=== PATIENT | female | born 1935 | race Two or more races ===

== ENCOUNTER 2017-07-26 22:18 | Inpatient (IN) | payer MEDICARE, MEDICAID ==
[~2017-07-26] VITALS: Ht 154.9 cm; Wt 64.0 kg
--- NOTE | 2017-07-26 22:21 | NUR ---
PT BIB RA 60 WITH A C/O HYPOGLYCEMIA IN THE FIELD. PT APPEARS ALTERED. NOT RESPONDING TO VERBAL. PT TAKEN TO ROOM #7 AND PLACED ON THE BED. PT CONNECTED TO THE MONITOR AND CONTINUOUS PULSE OX.
--- NOTE | 2017-07-26 22:21 | NUR ---
PER TRIAGE, LAST KNOWN WELL 10 MINS STOCK CONTROL SUPERVISOR.
--- NOTE | 2017-07-26 22:28 | NUR ---
DR. REDDY IS AT THE BEDSIDE EVALUATING THE PT.
[2017-07-26] MEDS ORDERED: DEXTROSE 50%-WATER 50 ML DISP.SYRIN ONE ×2 (22:30→23:41)
--- NOTE | 2017-07-26 22:30 | NUR ---
ACCUCHECK DONE. BLOOD SUGAR IS 23.
--- NOTE | 2017-07-26 22:30 | NUR ---
CALLED [facility]'S TELESTROKE HOTLINE, SPOKE WITH ELSY, PRESENTED PT, AWAITING CALL BACK FROM (NEUROLOGIST).
--- NOTE | 2017-07-26 22:32 | NUR ---
PT REC'D AN AMP OF DEXTROSE VIA 20G IV R HAND.
--- NOTE | 2017-07-26 22:33 | NUR ---
PT LEFT FOR CT.
--- NOTE | 2017-07-26 22:47 | NUR ---
DR. REDDY SPOKE TO THE NEUROLOGIST AND ASKED US TO CALL IF WE NEED HIM. PT'S NIHSS AT THIS TIME IS 0.
--- NOTE | 2017-07-26 22:50 | NUR ---
PT IS EATING A TUNA SANDWICH AND DRINKING OJ. PT IS TOLERATING PO WELL.
[2017-07-26 23:12] LABS: BASOPHILS % (AUTO) 0.2 % (0.0-2.0); EOSINOPHILS # (AUTO) 0.1 /CMM (0.0-0.7); EOSINOPHILS % (AUTO) 1.1 % (0.0-6.0); HEMATOCRIT 36 % (33-45); LYMPHOCYTES % (AUTO) 28.6 % (20.0-44.0); MEAN CORPUSCULAR HEMOGLOBIN 29 PG (26.0-33.0); MEAN CORPUSCULAR HGB CONC 33 g/dl (31.0-36.0); MEAN CORPUSCULAR VOLUME 89 fL (82-100); MONOCYTES # (AUTO) 0.4 /CMM (0.1-1.30); MONOCYTES % (AUTO) 6.1 % (2.0-12.0); NEUTROPHILS # (AUTO) 4.5 /CMM (1.8-8.9); PLATELET COUNT (AUTO) 186 /CMM (150-450); RDW COEFFICIENT OF VARIATION 16.7 (11.5-15.0)
[2017-07-26 23:26] LABS: CALCIUM, SERUM 8.3 mg/dL (8.5-10.1); CARBON DIOXIDE 32 mmol/L (21-32); CHLORIDE 101 mmol/L (98-107); CREATININE 3.2 mg/dL (0.6-1.3); GLUCOSE 88 mg/dL (74-106); POTASSIUM 4.2 mmol/L (3.5-5.1); SODIUM SERUM 137 mmol/L (136-145); UREA NITROGEN, BLOOD 16 mg/dL (7-18)
[2017-07-26 23:27] LABS: INR 1.07 (0.87-1.13)
[2017-07-26 23:33] LABS: ALANINE AMINOTRANSFERASE 13 U/L (12-78); ALBUMIN 3.4 g/dL (3.4-5.0); ALKALINE PHOSPHATASE 186 U/L (46-116); ASPARTATE AMINOTRANSFERASE 17 U/L (15-37); BILIRUBIN,DIRECT 0.2 mg/dL (0.0-0.2); BILIRUBIN,TOTAL 0.5 mg/dL (0.2-1.0); TOTAL PROTEIN, SERUM 7.8 g/dL (6.4-8.2); TROPONIN I < 0.017 ng/mL (0.00-0.056)
--- NOTE | 2017-07-26 23:58 | NUR ---
IN AND OUT CATH DONE. APPROX 3ML URINE OUTPUT NOTED AND SENT TO LAB.
[2017-07-27] MEDS ORDERED: AZITHROMYCIN 500 MG in IV D5W 250 ML IV ONE ×2
[2017-07-27] MEDS ORDERED: CEFTRIAXONE 1 G VIAL ONE
[2017-07-27] MEDS ORDERED: AZITHROMYCIN 500 MG VIAL ONE
[2017-07-27] MEDS ORDERED: CEFTRIAXONE 1GM BAG (ER ONLY) 50 ML IV ONE
--- NOTE | 2017-07-27 00:18 | NUR ---
PT IS GOING TO [facility]
[2017-07-27 00:20] LABS: APPEARANCE,URINE SL CLOUDY (CLEAR); BILIRUBIN,URINE 1+ (NEGATIVE); BLOOD, URINE 2+ Ery/uL (NEGATIVE); COLOR,URINE YELLOW (YELLOW); KETONES,URINE 1+ (NEGATIVE); LEUKOCYTE ESTERASE ,URINE NEGATIVE (NEGATIVE); NITRITE, URINE NEGATIVE (NEGATIVE); PROTEIN,URINE 1+ mg/dl (NEGATIVE); UGLUCOSE NEGATIVE (NEGATIVE); UROBILINOGEN,URINE 0.2 EU/dL (0.2)
[2017-07-27 00:29] LABS: BACTERIA,URINE None seen /HPF (None Seen)
[2017-07-27 00:30] LABS: SQUAMOUS EPITHELIAL CELL,UR Few /HPF (None Seen)
--- NOTE | 2017-07-27 00:47 | NUR ---
REPORT GIVEN TO JANE MOORE
[2017-07-27 01:00] VITALS: BP 129/46
--- NOTE | 2017-07-27 01:15 | NUR ---
[facility]/RN NOTES: ADMITTED AN 82 YRS FEMALE FROM ER VIA [facility] W/ NURSE ARCENIO AND DAUGHTER AT BEDSIDE. TRANSFERRED PT. TO ROOM 107. A/O X 3. CITIZEN OF [place] SPEAKING ONLY. W/ O2 @ 3LPM VIA N/C SAT.99%. NO FACIAL GRIMACE OR MOANING NOTED. PT. DENIES ANY C/O CHEST PAIN OR SOB VIA DAUGHTERS HELP IN TRANSLATING IN CITIZEN OF [place]. HAS LUE FISTULA. HAD HD YESTERDAY. HAS 20 G ON RH PATENT AND INTACT W/ NO S/S OF INFECTION/INFILTRATION NOTED. ON TELE MONITOR W/ SINUS RAKESH IN 50-56'S. DAUGHTER BROUGHT IN HOME MEDS. INFORMED DR. CLINE. HAS TRACE EDEMA TO BLE'S. CALL LIGHT W/ REACH. ALL NEEDS MEET AND ATTENED. WILL CONTINUE TO MONITOR.
[2017-07-27] MEDS ORDERED: MAG HYDROX/AL HYDROX/SIMETH 30 ML UDC PO PRN (01:30)
[2017-07-27] MEDS ORDERED: ACETAMINOPHEN 325 MG TABLET PO PRN (01:30)
[2017-07-27] MEDS ORDERED: IV NS 0.9% 1,000 ML BAG IV ONE (01:30)
[2017-07-27] MEDS ORDERED: ONDANSETRON HCL/PF 4 MG/2 ML VIAL IVP PRN (01:30)
[2017-07-27] MEDS ORDERED: MAGNESIUM HYDROXIDE 30 ML UDC PO PRN (01:30)
[2017-07-27] MEDS ORDERED: IV D5/0.45 NACL 1,000 ML IV PRN (01:30)
[2017-07-27] MEDS ORDERED: ZOLPIDEM TARTRATE 5 MG TABLET PO PRN (01:30)
[2017-07-27] MEDS ORDERED: VANCOMYCIN 1 GM in IV D5W 250 ML IV ONE (01:30)
[2017-07-27] MEDS ORDERED: HYDROCODONE/APAP 5/325MG 1 EACH TABLET PO PRN (01:30)
[2017-07-27] MEDS ORDERED: Z GUARD REMEDY 2 OZ OINT TP PRN (01:30)
[2017-07-27] MEDS ORDERED: VANCOMYCIN 1 GM VIAL ONE (02:08)
[2017-07-27 04:00] VITALS: BP 141/47
[2017-07-27] MEDS ORDERED: PIPERACILLIN /TAZOBACTAM 3.375 G VIAL IV ONE (04:17)
[2017-07-27] MEDS ORDERED: DEXTROSE 50%-WATER 50 ML DISP.SYRIN ONE (05:38)
[2017-07-27] MEDS ORDERED: PIPERACILLIN /TAZOBACTAM 3.375 G in IV D5W 50 ML IV SCH (06:00)
[2017-07-27] MEDS ORDERED: DEXTROSE 50%-WATER 50 ML DISP.SYRIN IVP PRN (06:00)
[2017-07-27] MEDS ORDERED: DEXTROSE 50%-WATER 50 ML DISP.SYRIN IVP ONE ×3 (06:00)
--- NOTE | 2017-07-27 07:29 | NUR ---
[facility]/RN NOTES: BS AT 6:15 AM 141. I/O 15 ML URINE. ENDORSED AM NURSE TO CLARIFY OMEPRAZOLE 20 MG, ULORIC (FEBUXOSTAT) 40 MGS DAILY AND ORDERS FOR BS CHECK. REPORT GIVEN TO NEXT SHIFT NURSE FOR GARRETT.
[2017-07-27] MEDS ORDERED: FEE PK DOSING 1 MIN EA MC ONE (07:52)
[2017-07-27] MEDS ORDERED: METO25TA20 PO (07:53)
[2017-07-27] MEDS ORDERED: ATOR10TA PO (07:53)
[2017-07-27] MEDS ORDERED: APIX2.5T PO (07:53)
[2017-07-27] MEDS ORDERED: GLIP2.5T3 PO (07:53)
[2017-07-27] MEDS ORDERED: OMEP20CA10 PO (07:53)
[2017-07-27] MEDS ORDERED: AMLO10TA2 PO (07:53)
[2017-07-27] MEDS ORDERED: LEVO50TA8 PO (07:53)
[2017-07-27] MEDS ORDERED: FEBU40TA PO (07:53)
[2017-07-27] MEDS ORDERED: VALS80TA2 PO (07:53)
[2017-07-27] MEDS ORDERED: MORPHINE SULFATE INJ 4 MG/ML DISP.SYRIN IV PRN (08:00)
[2017-07-27] MEDS ORDERED: VANCOMYCIN 500 MG in IV D5W 100 ML IV PRN (08:00)
--- NOTE | 2017-07-27 08:00 | NUR ---
[facility] RN NOTE PATIENT IN BED ALERT AND ORIENTED X4 ON OXYGEN 3L, NO SOB NOTED, ON TELE MONITOR SB-SR 58, PATIENT ON D5 1/2 NS AT 75 ML/HR , PLAN OF CARE DISCUSSED WITH PATIENT, BED IN LOWEST AND LOCKED POSITION WILL MONITOR CLOSELY CALL LIGHT WITH IN REACH.
--- NOTE | 2017-07-27 08:40 | NUR ---
[facility] LARA NOTE PATIENT BLLOD SUGAR CHECK 27MG/DL D50% GIVEN ORDER, WILL MONITOR CLOSELY Addendum: 07/27/17 at 0919 by VANNA ESPINAL RN GLUCOTROL NOT GIVEN BLOOD SUGAR 88MG\DL
[2017-07-27] MEDS: AMLODIPINE BESYLATE 10 MG TABLET PO SCH (08:55)
[2017-07-27] MEDS: VALSARTAN 80 MG TABLET PO SCH ×2 (08:55→21:31)
[2017-07-27] MEDS: APIXABAN 2.5 MG TABLET PO SCH ×2 (08:57→16:25)
[2017-07-27] MEDS: LEVOTHYROXINE SODIUM 50 MCG TABLET PO SCH ×2 (08:58→09:00)
[2017-07-27] MEDS: METOPROLOL SUCCINATE 25 MG TAB.SR.24H PO SCH (08:58)
[2017-07-27] MEDS: glipiZIDE 5 MG TABLET PO SCH (08:58)
[2017-07-27] MEDS: LORAZEPAM 0.5 MG TABLET PO SCH ×2 (08:59→16:25)
[2017-07-27 10:40] VITALS: BP 153/43
--- NOTE | 2017-07-27 10:43 | NUR ---
[facility] RN OTE PT AT BEDSIDE
[2017-07-27 12:00] VITALS: BP 126/40
[2017-07-27] MEDS: PIPERACILLIN /TAZOBACTAM 2.25 G in IV D5W 50 ML IV SCH ×2 (12:23→21:30)
--- NOTE | 2017-07-27 12:47 | NUR ---
[facility] RN NOTE SPOKE WITH DR KING AWARE THAT EALIER BLOOD SUGAR 27 MG\DL WITH NEW ORDER GIVEN ACCU CHECK AND D5W AT 40 ML PER HOUR
[2017-07-27] MEDS ORDERED: IV D5W 1,000 ML IV PRN (13:00)
[2017-07-27] MEDS ORDERED: DEXTROSE 50%-WATER 50 ML DISP.SYRIN IV PRN (13:00)
[2017-07-27 16:00] VITALS: BP 102/42
[2017-07-27] MEDS ORDERED: APIXABAN 2.5 MG TABLET PO SCH (17:00)
[2017-07-27] MEDS: BLOOD SUGAR DIAGNOSTIC 1 EACH STRIP IN SCH ×2 (17:33→21:33)
--- NOTE | 2017-07-27 17:33 | NUR ---
[facility] RN NOTE BLOOD SUGAR 26 MG\DL , D 50% GIVEN IV ORDERED DR KING NOTIFIED , STATED ENCOURAGE TO EAT BETTER
--- NOTE | 2017-07-27 18:19 | NUR ---
[facility] RNNNOTE BLOOD SUGAR 90 MG\DL HAVING DINER , FAMILY AT BEDSIDE , ALL NEEDS ATTENDED WILL CONT TO MONITOR CLOSELY
--- NOTE | 2017-07-27 19:30 | NUR ---
[facility] RN INITIAL NOTES RECEIVED PATIENT AWAKE, A/OX3, OCCITAN SPEAKING. DENIES PAIN OR DISCOMFORT. DENIES SOB. SKIN WARM AND DRY TO TOUCH. ON TELE MONITOR SB 58. IVF RUNNING. HOB ELEVATED. SIDE RAILS UP AND LOCKED. BED KEPT AT LOWEST POSITION. CALL LIGHT KEPT WITHIN EASY REACH. WILL CONTINUE TO MONITOR.
[2017-07-27 20:00] VITALS: BP 144/34
[2017-07-27] MEDS ORDERED: ATORVASTATIN 10 MG TABLET PO SCH (22:00)
[2017-07-28] VITALS (7 sets, daily range): BP systolic 140–161; BP diastolic 41–49
[2017-07-28] MEDS: PIPERACILLIN /TAZOBACTAM 2.25 G in IV D5W 50 ML IV SCH ×3 (05:40→21:45)
--- NOTE | 2017-07-28 06:49 | NUR ---
[facility] RN CLOSING NOTES NO SIGNIFICANT CHANGES OVERNIGHT. ALL DUE MEDS GIVEN. NO RESPIRATORY DISTRESS NOTED, ON 3LPMO2 VIA NC. ALL NEEDS ANTICIPATED AND MET. HOB KEPT ELEVATED. SIDE RAILS UP AND LOCKED. KEPT CLEAN AND DRY. CALL LIGHT KEPT WITHIN EASY REACH. WILL ENDORSE CONTINUITY OF CARE TO AM NURSE.
[2017-07-28] MEDS: BLOOD SUGAR DIAGNOSTIC 1 EACH STRIP IN SCH ×4 (07:57→21:47)
[2017-07-28] MEDS: LEVOTHYROXINE SODIUM 50 MCG TABLET PO SCH (07:58)
[2017-07-28] MEDS: ATORVASTATIN 10 MG TABLET PO SCH (08:00)
[2017-07-28] MEDS: APIXABAN 2.5 MG TABLET PO SCH ×2 (08:00→16:33)
[2017-07-28] MEDS: glipiZIDE 5 MG TABLET PO SCH (08:00)
[2017-07-28] MEDS: LORAZEPAM 0.5 MG TABLET PO SCH ×2 (08:00→16:28)
[2017-07-28] MEDS ORDERED: AMLODIPINE BESYLATE 10 MG TABLET PO SCH (09:00)
[2017-07-28] MEDS: AMLODIPINE BESYLATE 10 MG TABLET PO SCH (09:00)
[2017-07-28] MEDS: VALSARTAN 80 MG TABLET PO SCH ×2 (09:00→21:44)
[2017-07-28] MEDS: METOPROLOL SUCCINATE 25 MG TAB.SR.24H PO SCH (09:00)
--- NOTE | 2017-07-28 09:23 | NUR ---
RN INITIAL NOTE PT STABLE NO C/O PAIN. ALL SAFETY MEASURES IN PLACE. SPOKE TO MATTIE HD NURSE ASKED TO HOLD B/P MEDICATIONS . PATIENT WILL HAVE HD THIS MORNING.
--- NOTE | 2017-07-28 09:26 | NUR ---
RN NOTE REMOVED PINKY STICKY NOTE FOR PATIENT SAFETY.
[2017-07-28 11:18] LABS: *C PEPTIDE 11.8 ng/mL (1.1-4.4); *INSULIN 24.2 uIU/mL (2.6-24.9)
[2017-07-28] MEDS: INSULIN REGULAR, HUMAN 100 UNIT/ML 3 ML VIAL SQ PRN (11:35)
[2017-07-28] MEDS: ALBUTEROL FS 2.5 MG/3 ML VIAL.NEB NEB SCH ×2 (14:20→19:30)
[2017-07-28] MEDS: LACTOBACILLUS RHAMNOSUS GG 1 EACH CAP.SPRINK PO SCH (16:28)
[2017-07-28 17:10] LABS: BASOPHILS % (AUTO) 0.4 % (0.0-2.0); EOSINOPHILS # (AUTO) 0.2 /CMM (0.0-0.7); EOSINOPHILS % (AUTO) 2.7 % (0.0-6.0); HEMATOCRIT 34 % (33-45); HEMOGLOBIN 11.4 g/dL (11.5-14.8); LYMPHOCYTES # (AUTO) 1.8 /CMM (0.8-4.8); LYMPHOCYTES % (AUTO) 24.1 % (20.0-44.0); MEAN CORPUSCULAR HEMOGLOBIN 29 PG (26.0-33.0); MEAN CORPUSCULAR HGB CONC 34 g/dl (31.0-36.0); MEAN CORPUSCULAR VOLUME 87 fL (82-100); MONOCYTES # (AUTO) 0.5 /CMM (0.1-1.30); MONOCYTES % (AUTO) 7.1 % (2.0-12.0); NEUTROPHILS # (AUTO) 4.9 /CMM (1.8-8.9); NEUTROPHILS % (AUTO) 65.7 % (43.0-81.0); PLATELET COUNT (AUTO) 175 /CMM (150-450); RDW COEFFICIENT OF VARIATION 16.9 (11.5-15.0); RED BLOOD CELL COUNT(AUTO) 3.92 MIL/uL (4.0-5.2); RETICULOCYTE COUNT 1.2 % (0.6-2.5); WHITE BLOOD COUNT (AUTO) 7.4 K/uL (4.3-11.0)
[2017-07-28 17:31] LABS: ALANINE AMINOTRANSFERASE 11 U/L (12-78); ALBUMIN 2.8 g/dL (3.4-5.0); ALKALINE PHOSPHATASE 165 U/L (46-116); AMYLASE 43 U/L (25-115); ASPARTATE AMINOTRANSFERASE 19 U/L (15-37); BILIRUBIN,TOTAL 0.6 mg/dL (0.2-1.0); CALCIUM, SERUM 8.2 mg/dL (8.5-10.1); CARBON DIOXIDE 27 mmol/L (21-32); CHLORIDE 91 mmol/L (98-107); CREATININE 4.2 mg/dL (0.6-1.3); GLUCOSE 81 mg/dL (74-106); INR 1.13 (0.87-1.13); LIPASE 62 U/L (73-393); MAGNESIUM 1.7 mg/dL (1.8-2.4); PHOSPHORUS 3.9 mg/dL (2.5-4.9); POTASSIUM 4.9 mmol/L (3.5-5.1); SODIUM SERUM 127 mmol/L (136-145); TOTAL PROTEIN, SERUM 7.1 g/dL (6.4-8.2); UREA NITROGEN, BLOOD 23 mg/dL (7-18)
[2017-07-28 18:34] LABS: IRON, SERUM 48 ug/dl (50-175); TOTAL IRON BINDING CAPACITY 213 ug/dl (250-450)
--- NOTE | 2017-07-28 19:30 | NUR ---
POTATO CHIP FRIER INITIAL NOTES RECEIVED PATIENT AWAKE A/OX1, APPEARS TO BE MORE CONFUSED TODAY. FAMILY AT BEDSIDE. DIALYSIS NURSE AT BEDSIDE WITH HD ONGOING. SKIN WARM AND DRY TO TOUCH. DENIES PAIN OR DISCOMFORT. NO RESPIRATORY DISTRESS NOTED. NOTED WITH DRY COUGH, ON 3LPMO2 VIA NC. HOB ELEVATED. SIDE RAILS UP AND LOCKED. BED KEPT AT LOWEST POSITION. CALL LIGHT KEPT WITHIN EASY REACH. WILL CONTINUE TO MONITOR.
--- NOTE | 2017-07-28 19:53 | NUR ---
PATIENT COMPLETED DIALYSIS WITH NO COMPLICATIONS WITH 1L TAKEN OUT.
[2017-07-28 22:37] LABS: CHOLESTEROL 107 mg/dL (<200); HDL CHOLESTEROL 57 mg/dL (40-60); LDL 38 mg/dL (0-99); TRIGLYCERIDES 70 mg/dL (30-150)
--- NOTE | 2017-07-28 23:45 | NUR ---
telecom specialist notes noted patient with non-productive cough. informed dr. kevin with new orders for robitussin 5ml. noted and carried out. will continue to monitor.
[2017-07-28] MEDS: GUAIFENESIN/D-METHORPHAN HB 5 ML UDC PO PRN (23:46)
[2017-07-29] VITALS: BP 138/53
[2017-07-29] MEDS: ALBUTEROL FS 2.5 MG/3 ML VIAL.NEB NEB SCH ×4 (01:44→19:44)
[2017-07-29 04:00] VITALS: BP 128/35
[2017-07-29] MEDS: PIPERACILLIN /TAZOBACTAM 2.25 G in IV D5W 50 ML IV SCH ×3 (05:26→23:07)
[2017-07-29 06:55] LABS: BASOPHILS % (AUTO) 0.5 % (0.0-2.0); EOSINOPHILS # (AUTO) 0.2 /CMM (0.0-0.7); EOSINOPHILS % (AUTO) 3.5 % (0.0-6.0); HEMATOCRIT 30 % (33-45); HEMOGLOBIN 10.3 g/dL (11.5-14.8); LYMPHOCYTES # (AUTO) 1.2 /CMM (0.8-4.8); LYMPHOCYTES % (AUTO) 22.1 % (20.0-44.0); MEAN CORPUSCULAR HEMOGLOBIN 30 PG (26.0-33.0); MEAN CORPUSCULAR HGB CONC 34 g/dl (31.0-36.0); MEAN CORPUSCULAR VOLUME 88 fL (82-100); MONOCYTES # (AUTO) 0.4 /CMM (0.1-1.30); MONOCYTES % (AUTO) 7.7 % (2.0-12.0); NEUTROPHILS # (AUTO) 3.6 /CMM (1.8-8.9); NEUTROPHILS % (AUTO) 66.2 % (43.0-81.0); PLATELET COUNT (AUTO) 134 /CMM (150-450); RDW COEFFICIENT OF VARIATION 16.8 (11.5-15.0); RED BLOOD CELL COUNT(AUTO) 3.46 MIL/uL (4.0-5.2); WHITE BLOOD COUNT (AUTO) 5.5 K/uL (4.3-11.0)
[2017-07-29 07:11] LABS: CARBON DIOXIDE 30 mmol/L (21-32); CHLORIDE 97 mmol/L (98-107); CREATININE 3.3 mg/dL (0.6-1.3); GLUCOSE 102 mg/dL (74-106); MAGNESIUM 1.9 mg/dL (1.8-2.4); PHOSPHORUS 4.2 mg/dL (2.5-4.9); POTASSIUM 4.5 mmol/L (3.5-5.1); SODIUM SERUM 132 mmol/L (136-145); UREA NITROGEN, BLOOD 17 mg/dL (7-18)
--- NOTE | 2017-07-29 07:25 | NUR ---
COIN MACHINE SERVICER REPAIRER CLOSING NOTES NO SIGNIFICANT CHANGES OVERNIGHT. NO RESPIRATORY DISTRESS NOTED. SLEPT WELL THROUGH THEN NIGHT. ALL NEEDS ANTICIPATED AND MET. SIDE RAILS UP AND LOCKED. BED KEPT AT LOWEST POSITION. CALL LIGHT KEPT WITHIN EASY REACH. WILL ENDORSE CONTINUITY OF CARE TO AM NURSE.
--- NOTE | 2017-07-29 07:30 | NUR ---
DOCK GRADER AM NOTES RECEIVED PATIENT AWAKE A/OX1, KITTITIAN SPEAKING, PERIODS OF CONFUSION. ON 3L O2 NC, NO SOB, O2 SAT 94%. DENIES PAIN AT THIS TIME, GATO AV FISTUAL THRILL AND BRUIT PRESENT. JANETH MIDLINE FLUSHES WELL, SITE CLEAR.SEE NURSING FLOWSHEET FOR SKIN ISSUES. SOFT DIET. BRP WITH ASSIST. SKIN WARM AND DRY TO TOUCH. NOTED WITH DRY COUGH, ON 3LPMO2 VIA NC. HOB ELEVATED. SIDE RAILS UP AND LOCKED. BED KEPT AT LOWEST POSITION. CALL LIGHT KEPT WITHIN EASY REACH. WILL CONTINUE TO MONITOR. Addendum: 07/29/17 at 1047 by LILLIAN DODSON RN ADDENDUM TELEMETRY READS SR HR 98.
[2017-07-29 08:00] VITALS: BP 115/42
[2017-07-29] MEDS: BLOOD SUGAR DIAGNOSTIC 1 EACH STRIP IN SCH ×4 (08:07→21:34)
[2017-07-29] MEDS: LEVOTHYROXINE SODIUM 50 MCG TABLET PO SCH (08:14)
--- NOTE | 2017-07-29 08:17 | NUR ---
POWER SEWING MACHINE OPERATOR NOTES ACCUCHECK. BS 99 MG/DL. NO INSULIN COVERAGE GIVEN.
[2017-07-29] MEDS: LACTOBACILLUS RHAMNOSUS GG 1 EACH CAP.SPRINK PO SCH ×2 (08:22→16:30)
[2017-07-29] MEDS: LORAZEPAM 0.5 MG TABLET PO SCH ×2 (08:22→16:30)
[2017-07-29] MEDS: METOPROLOL SUCCINATE 25 MG TAB.SR.24H PO SCH (08:23)
[2017-07-29] MEDS: AMLODIPINE BESYLATE 10 MG TABLET PO SCH (08:23)
[2017-07-29] MEDS: VALSARTAN 80 MG TABLET PO SCH ×2 (08:23→21:26)
[2017-07-29] MEDS: ATORVASTATIN 10 MG TABLET PO SCH (08:25)
[2017-07-29] MEDS: APIXABAN 2.5 MG TABLET PO SCH ×2 (09:11→16:30)
--- NOTE | 2017-07-29 09:30 | NUR ---
PARENT PARTNER NOTES DUE MEDS GIVEN
[2017-07-29] MEDS: GUAIFENESIN/D-METHORPHAN HB 5 ML UDC PO PRN (11:44)
--- NOTE | 2017-07-29 11:52 | NUR ---
FILTRATION SUPERVISOR NOTES ACCUCHECK. BS 103 MG/DL. NO INSULIN COVERAGE GIVEN.
[2017-07-29 16:00] VITALS: BP 140/56
--- NOTE | 2017-07-29 16:34 | NUR ---
SAW OPERATOR NOTES ACCUCHECK. BS 143 MG/DL. PATIENT REFUSED INSULIN AT THIS TIME DUE TO PREVIOUS LOW BS.
--- NOTE | 2017-07-29 18:37 | NUR ---
MS RN CLOSING NOTES PATIENT RESTING COMFORTABLY, A/OX1, OCCITAN SPEAKING, PERIODS OF CONFUSION. ON 3L O2 NC, NO SOB, DENIES PAIN AT THIS TIME, GATO AV FISTULA THRILL AND BRUIT PRESENT. JANETH MIDLINE FLUSHES WELL, SITE CLEAR.SOFT DIET. BRP WITH ASSIST. SKIN WARM AND DRY TO TOUCH. NOTED WITH DRY COUGH, HOB ELEVATED. SIDE RAILS UP AND LOCKED. BED KEPT AT LOWEST POSITION. CALL LIGHT KEPT WITHIN EASY REACH. ALL NEEDS MET. NO OTHER SIGNIFICANT CHANGE IN CONDITION. WILL ENDORSE TO NEXT SHIFT FOR GARRETT.
[2017-07-29 20:00] VITALS: BP 144/42
[2017-07-30] MEDS: ALBUTEROL FS 2.5 MG/3 ML VIAL.NEB NEB SCH ×4 (01:29→20:50)
--- NOTE | 2017-07-30 03:16 | NUR ---
RN NOTES ALERT AND ORIENTED. VERBALLY ABLE TO COMMUNICATE NEEDS, MAURITANIAN SPEAKING. NO DISTRESS NOTED. BREATHING EVEN AND UNLABORED. NO COMPLAINT OF PAIN OR DISCOMFORT. VITAL SIGNS WNL. KEPT CLEAN AND DRY. WILL CONTINUE TO MONITOR.
[2017-07-30 04:00] VITALS: BP 116/62
[2017-07-30] MEDS: PIPERACILLIN /TAZOBACTAM 2.25 G in IV D5W 50 ML IV SCH (05:22)
--- NOTE | 2017-07-30 06:35 | NUR ---
RN CLOSING NOTES REMAINS AFEBRILE WITH SKIN WARM AND DRY TO TOUCH. NO DISTRESS NOTED. BREATHING EVEN AND UNLABORED. NO SIGNIFICANT CHANGE OF CONDITION. VITAL SIGNS WNL. KEPT CLEAN AND DRY. WILL ENDORSE TO AM SHIFT FOR CONTINUITY OF CARE. Addendum: 07/30/17 at 0646 by PIPE ALBARADO RN NON ADMINISTRATION OF INSULIN FOR 2200 - 119MG/DL = 0 UNIT, AND 0730- 89MG/DL = 0 UNIT,
[2017-07-30] MEDS: BLOOD SUGAR DIAGNOSTIC 1 EACH STRIP IN SCH ×4 (06:45→21:39)
[2017-07-30 07:28] LABS: BASOPHILS % (AUTO) 0.9 % (0.0-2.0); EOSINOPHILS # (AUTO) 0.2 /CMM (0.0-0.7); HEMATOCRIT 30 % (33-45); HEMOGLOBIN 10.1 g/dL (11.5-14.8); LYMPHOCYTES # (AUTO) 1.3 /CMM (0.8-4.8); MEAN CORPUSCULAR HEMOGLOBIN 29 PG (26.0-33.0); MEAN CORPUSCULAR HGB CONC 34 g/dl (31.0-36.0); MEAN CORPUSCULAR VOLUME 87 fL (82-100); MONOCYTES # (AUTO) 0.5 /CMM (0.1-1.30); MONOCYTES % (AUTO) 9.5 % (2.0-12.0); NEUTROPHILS # (AUTO) 3.7 /CMM (1.8-8.9); NEUTROPHILS % (AUTO) 63.6 % (43.0-81.0); PLATELET COUNT (AUTO) 113 /CMM (150-450); RDW COEFFICIENT OF VARIATION 16.5 (11.5-15.0); RED BLOOD CELL COUNT(AUTO) 3.46 MIL/uL (4.0-5.2); WHITE BLOOD COUNT (AUTO) 5.8 K/uL (4.3-11.0)
[2017-07-30 07:53] LABS: CALCIUM, SERUM 7.8 mg/dL (8.5-10.1); CARBON DIOXIDE 28 mmol/L (21-32); CHLORIDE 95 mmol/L (98-107); CREATININE 4.4 mg/dL (0.6-1.3); GLUCOSE 100 mg/dL (74-106); MAGNESIUM 1.8 mg/dL (1.8-2.4); PHOSPHORUS 5.2 mg/dL (2.5-4.9); POTASSIUM 4.6 mmol/L (3.5-5.1); SODIUM SERUM 132 mmol/L (136-145); UREA NITROGEN, BLOOD 24 mg/dL (7-18)
[2017-07-30 08:00] VITALS: BP_SYST 100; BP_SYST 168; BP_DIAS 65; BP_DIAS 81
[2017-07-30] MEDS: LEVOTHYROXINE SODIUM 50 MCG TABLET PO SCH (08:07)
[2017-07-30] MEDS: ATORVASTATIN 10 MG TABLET PO SCH (08:30)
[2017-07-30] MEDS: AMLODIPINE BESYLATE 10 MG TABLET PO SCH (08:30)
[2017-07-30] MEDS: LACTOBACILLUS RHAMNOSUS GG 1 EACH CAP.SPRINK PO SCH ×2 (08:30→17:11)
[2017-07-30] MEDS: VALSARTAN 80 MG TABLET PO SCH ×2 (08:30→21:40)
[2017-07-30] MEDS: LORAZEPAM 0.5 MG TABLET PO SCH ×2 (08:30→17:11)
[2017-07-30] MEDS: METOPROLOL SUCCINATE 25 MG TAB.SR.24H PO SCH (08:31)
[2017-07-30] MEDS: APIXABAN 2.5 MG TABLET PO SCH ×2 (09:00→17:11)
[2017-07-30] MEDS ORDERED: LEVOFLOXACIN (500MG) 500 MG TABLET PO SCH (13:30)
[2017-07-30 16:00] VITALS: BP_SYST 100; BP_SYST 109; BP_DIAS 81
[2017-07-30] MEDS: INSULIN REGULAR, HUMAN 100 UNIT/ML 3 ML VIAL SQ PRN (18:08)
[2017-07-30 20:00] VITALS: BP 146/61
--- NOTE | 2017-07-30 20:00 | NUR ---
Recieved in bed alert and orientated. Smiling requisting a sandwitch. skin warm and dry. call light placed near her and revieved. Bed alarm on
--- NOTE | 2017-07-30 23:30 | NUR ---
Ms. Lucas's bed alarm sounded off, found her sitting on the floor next to the bed. Back to the side of the bed . She was sitting on the side of the bed eating her sandwitch and went to get up to go to the chair near her bed and she slipped to the floor. Assisted to her feet and she walked to the chair at the bedside with assist of the nurse. She denies hitting her head. Vital signs taken and call placed to MD Huber instructed to monitor the patient. Patient sat in chair for 30 minutes and then I assisted her back to bed bed alarm on and side rails up speech clear, patient denies pain.
[2017-07-31] MEDS: ALBUTEROL FS 2.5 MG/3 ML VIAL.NEB NEB SCH ×3 (00:33→13:26)
[2017-07-31 04:05] VITALS: BP 139/42
--- NOTE | 2017-07-31 05:46 | NUR ---
ENDING NOTES: AT THE BEGINNING OF THE SHIFT SHE WAS LYING DOWN IN BE ALERT AND ORIENTATED, BED ALARM ON, CALL WITHFELIPE GUERRERO, PT SMILING, REQUISTING A SANDWITCH. BROUGHT HER A SANDWITCH PLACED THE TABLE IN FRONT OF HER AND TOLD HER TO ENJOY THE SNACK. LATER ON IN THE EVENING 2330 SHE DECIDED TO GET OOB TO SIT ON A CHAIR THAT IS NEAR HER BED, GETTING TO THE EDGE OF THE BED SHE SLIPPED AND FLOPPED TO THE FLOOR, FOUND PT AND WITH 2 NURSE ASSIST GO HER TO HER FEET AND WALKED HER TO THE CHAIR SHE WANTED TO SIT IN. REMAIN ALERT AND ORIENTATED VITAL SIGNS STABLE MD FOFANA CALLED AND TOLD TO JUST MONITOR THE PATIENT.aS THE NIGHT PROGRESSED PATIENT WAS AWAKENED WHEN NAME CALLED AND CONTINUES TO DENY PAIN, AND WHEN REPOSITIONED NO INDICATION OF PAIN, BED ALARM REMAINS ON AND CALL LIGHT WITHEN HER YAMILEX. nOTED SHE DOES HAVE AN OCCASSIONAL DRY COUGH
[2017-07-31 07:09] LABS: BASOPHILS % (AUTO) 0.4 % (0.0-2.0); EOSINOPHILS # (AUTO) 0.2 /CMM (0.0-0.7); EOSINOPHILS % (AUTO) 3.4 % (0.0-6.0); HEMATOCRIT 28 % (33-45); HEMOGLOBIN 9.6 g/dL (11.5-14.8); LYMPHOCYTES # (AUTO) 1.3 /CMM (0.8-4.8); LYMPHOCYTES % (AUTO) 23.7 % (20.0-44.0); MEAN CORPUSCULAR HEMOGLOBIN 30 PG (26.0-33.0); MEAN CORPUSCULAR HGB CONC 35 g/dl (31.0-36.0); MEAN CORPUSCULAR VOLUME 87 fL (82-100); MONOCYTES # (AUTO) 0.4 /CMM (0.1-1.30); MONOCYTES % (AUTO) 7.7 % (2.0-12.0); NEUTROPHILS # (AUTO) 3.6 /CMM (1.8-8.9); NEUTROPHILS % (AUTO) 64.8 % (43.0-81.0); PLATELET COUNT (AUTO) 162 /CMM (150-450); RDW COEFFICIENT OF VARIATION 16.6 (11.5-15.0); RED BLOOD CELL COUNT(AUTO) 3.21 MIL/uL (4.0-5.2); WHITE BLOOD COUNT (AUTO) 5.6 K/uL (4.3-11.0)
[2017-07-31] MEDS: BLOOD SUGAR DIAGNOSTIC 1 EACH STRIP IN SCH ×2 (07:30→12:59)
[2017-07-31 08:00] VITALS: BP 172/42
[2017-07-31] MEDS: LEVOTHYROXINE SODIUM 50 MCG TABLET PO SCH (08:34)
[2017-07-31] MEDS: LORAZEPAM 0.5 MG TABLET PO SCH (08:41)
[2017-07-31] MEDS: LACTOBACILLUS RHAMNOSUS GG 1 EACH CAP.SPRINK PO SCH (08:42)
[2017-07-31] MEDS: ATORVASTATIN 10 MG TABLET PO SCH (08:42)
[2017-07-31 08:46] LABS: CARBON DIOXIDE 32 mmol/L (21-32); CHLORIDE 96 mmol/L (98-107); CREATININE 4.3 mg/dL (0.6-1.3); GLUCOSE 117 mg/dL (74-106); PHOSPHORUS 4.2 mg/dL (2.5-4.9); POTASSIUM 4.4 mmol/L (3.5-5.1); SODIUM SERUM 134 mmol/L (136-145); UREA NITROGEN, BLOOD 26 mg/dL (7-18)
[2017-07-31] MEDS: METOPROLOL SUCCINATE 25 MG TAB.SR.24H PO SCH (08:50)
[2017-07-31] MEDS: AMLODIPINE BESYLATE 10 MG TABLET PO SCH (08:51)
[2017-07-31] MEDS: APIXABAN 2.5 MG TABLET PO SCH (08:52)
[2017-07-31] MEDS: VALSARTAN 80 MG TABLET PO SCH (08:55)
[2017-07-31] MEDS ORDERED: CLONIDINE HCL 0.1 MG TABLET PO PRN (11:30)
[2017-07-31 12:00] VITALS: BP 155/64
[2017-07-31] MEDS: INSULIN REGULAR, HUMAN 100 UNIT/ML 3 ML VIAL SQ PRN (13:04)
--- NOTE | 2017-07-31 17:50 | NUR ---
MS DISCHARGE NOTES, PATIENT ALERT AOX4 ARMENIAN SPEAKING. DISCHARGED PATIENT PER MD ORDERS. PATIENT LEFT UNIT AT 1605 WITH ALL PERSONAL BELONGINGS. PICKED UP BY DAUGHTER (ARNIE). SKIN INTACT, NO S/S OF INFECTION OR DISTRESS, TEMP 98.6. RU ARM MID LINE REMOVED AND PLACED PRESSURE DRESSING OVER SITE.
== END 2017-07-31 16:11 | disposition home or self-care (01) | DRG 637 ==
LOC: ER 22:19 → TELE-TD 07-27 00:23 → TELE1 07-28 11:40 → MEDSG1 07-29 14:57
PROVIDERS: ADMIT Internal Medicine; ATTEND Internal Medicine
PROC: 05H633Z Insertion of Infusion Device into Left Subclavian Vein, Percutaneous Approach (ICD-10-PCS; principal; 2017-07-27)
PROC: B547ZZA Ultrasonography of Left Subclavian Vein, Guidance (ICD-10-PCS; 2017-07-27)
PROC: 5A1D70Z Performance of Urinary Filtration, Intermittent, Less than 6 Hours Per Day (ICD-10-PCS; 2017-07-28)
PROC: 5A1D70Z Performance of Urinary Filtration, Intermittent, Less than 6 Hours Per Day (ICD-10-PCS; 2017-07-30)
DX: E11.649 Type 2 diabetes mellitus with hypoglycemia without coma (principal); J96.01 Acute respiratory failure with hypoxia; G93.41 Metabolic encephalopathy; I12.0 Hypertensive chronic kidney disease with stage 5 chronic kidney disease or end stage renal disease; E11.22 Type 2 diabetes mellitus with diabetic chronic kidney disease; N18.6 End stage renal disease; E03.9 Hypothyroidism, unspecified; Z79.84 Long term (current) use of oral hypoglycemic drugs; Z79.899 Other long term (current) drug therapy; Z99.2 Dependence on renal dialysis; Z86.73 Personal history of transient ischemic attack (TIA), and cerebral infarction without residual deficits; Z82.49 Family history of ischemic heart disease and other diseases of the circulatory system; K21.9 Gastro-esophageal reflux disease without esophagitis; H91.90 Unspecified hearing loss, unspecified ear; E78.5 Hyperlipidemia, unspecified; Z79.01 Long term (current) use of anticoagulants
CPT/HCPCS: 36415; 70450-TC; 71045-TC; 80048-TC; 80053-TC; 80061-TC; 80076-TC; 80202-TC; 81000-TC; 82150-TC; 82272-TC; 82553-TC; 82746; 82962-TC; 83540-TC; 83605-TC; 83690-TC; 83735-TC; 84100-TC; 84484-TC; 85025-TC; 85045-TC; 85652-TC; 85730-TC; 87040-TC; 87081-TC; 87086-TC; 87400; 90935-TC; 92611-TC; 93307-TC; A4606; A6402; J0456; J0696; J1815; J2543; J3370; J3490; J7030; J7060; J7070; Z7610

== ENCOUNTER 2019-10-06 08:17 | Inpatient (IN) | payer MEDICARE, MEDICAID ==
[~2019-10-06] VITALS: Ht 152.4 cm; Wt 64.9 kg
[2019-10-06] VITALS (16 sets, daily range): BP systolic 48–145; BP diastolic 17–103
[~2019-10-06 08:17] MED LIST: AMLO10TA7 PO; APIX2.5T PO; ATOR10TA PO; FEBU40TA PO; LEVO50TA8 PO; METO25TA20 PO; OMEP20CA15 PO; VALS80TA2 PO
[2019-10-06] MEDS ORDERED: FUROSEMIDE 40 MG/4 ML VIAL ONE (08:27)
[2019-10-06] MEDS ORDERED: FUROSEMIDE 40 MG/4 ML VIAL IV ONE (08:30)
--- NOTE | 2019-10-06 08:40 | NUR ---
BIB RA C/O SOB X 15 MIN WAREHOUSE CONSULTANT. NITRO X 7 SPRAYS GIVEN IN FIELD. PATIENT A/OX3, PLACED ON O2 AT 6LPM VIA NC. ATTACHED TO THE BALANCE WHEEL SCREW HOLE DRILLER, IV LINE ESTABLISHED, BLOOD DRAWN. NEEDS ATTENDED.
[2019-10-06 08:43] LABS: BASOPHILS # (AUTO) 0.2 /CMM (0.0-0.2); BASOPHILS % (AUTO) 1.5 % (0.0-2.0); EOSINOPHILS % (AUTO) 1.1 % (0.0-6.0); HEMATOCRIT 38 % (33-45); HEMOGLOBIN 12.4 g/dL (11.5-14.8); LYMPHOCYTES # (AUTO) 4.7 /CMM (0.8-4.8); LYMPHOCYTES % (AUTO) 38.7 % (20.0-44.0); MEAN CORPUSCULAR HGB CONC 33 g/dl (31.0-36.0); MEAN CORPUSCULAR VOLUME 95 fL (82-100); MONOCYTES # (AUTO) 0.5 /CMM (0.1-1.30); MONOCYTES % (AUTO) 4.2 % (2.0-12.0); NEUTROPHILS # (AUTO) 6.7 /CMM (1.8-8.9); NEUTROPHILS % (AUTO) 54.5 % (43.0-81.0); PLATELET COUNT (AUTO) 252 /CMM (150-450); RED BLOOD CELL COUNT(AUTO) 4.01 MIL/uL (4.0-5.2); WHITE BLOOD COUNT (AUTO) 12.2 K/uL (4.3-11.0)
--- NOTE | 2019-10-06 08:51 | NUR ---
RADIOLOGY AT BEDSIDE FOR CXR
[2019-10-06 09:07] LABS: ALANINE AMINOTRANSFERASE 16 U/L (12-78); ALBUMIN 3.6 g/dL (3.4-5.0); ALKALINE PHOSPHATASE 133 U/L (46-116); ASPARTATE AMINOTRANSFERASE 21 U/L (15-37); B-TYPE NATRIURETIC PEPTIDE 26478 PG/ML (0-125); BILIRUBIN,DIRECT 0.2 mg/dL (0.0-0.2); BILIRUBIN,TOTAL 0.5 mg/dL (0.2-1.0); CALCIUM, SERUM 9.3 mg/dL (8.5-10.1); CARBON DIOXIDE 28 mmol/L (21-32); CHLORIDE 90 mmol/L (98-107); CREATININE 6.7 mg/dL (0.6-1.3); GLUCOSE 340 mg/dL (74-106); POTASSIUM 4.7 mmol/L (3.5-5.1); SODIUM SERUM 132 mmol/L (136-145); TOTAL PROTEIN, SERUM 8.1 g/dL (6.4-8.2); UREA NITROGEN, BLOOD 57 mg/dL (7-18)
--- NOTE | 2019-10-06 09:12 | NUR ---
CALLED CHRISTOPHER CORBETT AT [facility]
--- NOTE | 2019-10-06 09:14 | NUR ---
CALLED [facility]
--- NOTE | 2019-10-06 10:26 | NUR ---
GOT BED 310-1
[2019-10-06] MEDS ORDERED: GLIP2.5T3 PO (10:42)
[2019-10-06] MEDS ORDERED: DILT-3 PO (10:42)
[2019-10-06] MEDS ORDERED: LORA-258 PO (10:42)
[2019-10-06] MEDS ORDERED: LEVO25TA9 PO (10:42)
[2019-10-06] MEDS ORDERED: SEVE800T8 PO (10:42)
--- NOTE | 2019-10-06 10:43 | NUR ---
report given to sophie horn. awaiting transfer to floor.
--- NOTE | 2019-10-06 11:10 | NUR ---
New admission note Patient received from ER with liz, reported by Jamaal RN, patient AO x 3-4, able to responds all stimuli. Denies pain or discomfort. Skin is warm to touch, clean/dry, intact IV site on right forearm gauge 20, and intact fistula on right upper arm also. Respiratory even and unlabored with room air, no sob or difficult to breathing observed. Kepp lower position of bed with elevated HOB, side rails up x 2. Call light within reach, will continue to monitor.
[2019-10-06] MEDS ORDERED: Z GUARD REMEDY 2 OZ OINT TP PRN (12:30)
[2019-10-06] MEDS ORDERED: ONDANSETRON HCL/PF 4 MG/2 ML VIAL IVP PRN (12:30)
[2019-10-06] MEDS ORDERED: HYDROCODONE/APAP 5/325MG 1 EACH TABLET PO PRN (12:30)
[2019-10-06] MEDS ORDERED: MAGNESIUM HYDROXIDE 30 ML UDC PO PRN (12:30)
[2019-10-06] MEDS ORDERED: ACETAMINOPHEN 325 MG TABLET PO PRN (12:30)
[2019-10-06] MEDS ORDERED: MAG HYDROX/AL HYDROX/SIMETH 30 ML UDC PO PRN (12:30)
[2019-10-06] MEDS ORDERED: ZOLPIDEM TARTRATE 5 MG TABLET PO PRN (12:30)
--- NOTE | 2019-10-06 14:00 | NUR ---
Pt on HD who signed HD consent form.
[2019-10-06] MEDS ORDERED: ASPI-1152 PO (14:16)
[2019-10-06] MEDS ORDERED: DOCU100C36 PO (14:16)
[2019-10-06] MEDS ORDERED: LORA-259 PO (14:17)
--- NOTE | 2019-10-06 18:40 | NUR ---
Tele/RN Closing note Pt is on chair watching TV, denies pain or discomfort. Remain intact fistula on left upper arm, also IV site on right forearm 20G. Respiratory even and unlabored with oxygen at 4LPM via n/c, no sob or distress observed. Keep lower position of the bed with locked bed's wheels for safety. Still pending MRSA. Informed MD that MedRecon had been done. Call light within reach, will endorse shift supervisor melting.
--- NOTE | 2019-10-06 19:20 | NUR ---
Patient was going Hemodialysis at room 310-2, but pt started anxious and refused HD, so primary nurse called daughter/Ally to talk with patient on the phone who started perspiration and unconsciousness during on the phone. Rapid response called at 1919, vital sign checked and rapid response arrived, blood sugar checked: 175mg/dl, pacer was placed, oxygen place, pt became pulseless and code blue was called at 1925. Given 1st Epi 1mg/ml, 1928 2nd epi 1mg/ml, at [address] Boudreaux, size 7.5 at 21. vital sign p-101, bp-182/81, spO2-79%. Patient transfer to ICU, given report ICU/[place] RN. TRADITIONAL MAORI HEALTH PRACTITIONER/ Christiano Morton aware of above. Spoke with patient's daughter/Ally regarding change of condition and pt transferred ICU.
--- NOTE | 2019-10-06 19:38 | NUR ---
RN/ICU-RECEIVED PT. FROM TELE3 BY BED ACCOMPANIED BY CODE TEAM PER ACLS PROTOCOL. S/P CODE BLUE. ON CONTINUOUS BAGGING VIA ETT BY RT AND IMMEDIATELY HOOKED UP TO VENT. W/ INITIAL VENT .SETTINGS FOLLOWS:AC-16, VT-450, FIO2-100%, PEEP-+P. HOOKED UP TO BEDSIDE MONITOR W/ RHYTHM AFIB W/ HR-107, BP-155/54-. PT. IS A FULL CODE. WILL CONTINUE TO MONITOR PER PROTOCOL.
[2019-10-06] MEDS: PROPOFOL 100 ML IV PRN (20:15)
[2019-10-06] MEDS ORDERED: hydrALAZINE HCL IV 20 MG VIAL IV PRN (20:30)
[2019-10-06] MEDS ORDERED: FUROSEMIDE 100 MG/10 ML VIAL IV ONE (20:30)
[2019-10-06 20:46] LABS: BASOPHILS # (AUTO) 0.2 /CMM (0.0-0.2); BASOPHILS % (AUTO) 0.7 % (0.0-2.0); EOSINOPHILS % (AUTO) 0.4 % (0.0-6.0); HEMATOCRIT 36 % (33-45); HEMOGLOBIN 11.3 g/dL (11.5-14.8); LYMPHOCYTES # (AUTO) 5.4 /CMM (0.8-4.8); LYMPHOCYTES % (AUTO) 24.2 % (20.0-44.0); MEAN CORPUSCULAR HGB CONC 32 g/dl (31.0-36.0); MEAN CORPUSCULAR VOLUME 96 fL (82-100); MONOCYTES # (AUTO) 0.8 /CMM (0.1-1.30); MONOCYTES % (AUTO) 3.4 % (2.0-12.0); NEUTROPHILS % (AUTO) 71.3 % (43.0-81.0); PLATELET COUNT (AUTO) 231 /CMM (150-450); WHITE BLOOD COUNT (AUTO) 22.5 K/uL (4.3-11.0)
[2019-10-06 20:56] LABS: ABG BASE EXCESS -7.5 mmol/L; ABG OXYGEN SATURATION 88.8 % (92.0-98.5); ABG PCO2 67.9 mmHg (35.0-45.0); ABG PH 7.135 (7.350-7.450); ABG PO2 73.9 mmHg (75.0-100.0); AaDO2 571.2 mmHg; COHb 0.2 % (0.5-1.5); MetHb 0.4 % (0.0-1.5); O2Hb 88.3 % (94.0-97.0); PEEP,BG 5 cm H2O; SITE, ABG Right Radial
--- NOTE | 2019-10-06 20:56 | NUR ---
ABD DONE NOTIFIED RN.
[2019-10-06] MEDS ORDERED: HEPARIN SODIUM, PORCINE 5000 UNITS/1 ML VIAL SQ SCH (21:00)
[2019-10-06 21:01] LABS: ALANINE AMINOTRANSFERASE 76 U/L (12-78); ALBUMIN 2.9 g/dL (3.4-5.0); ALKALINE PHOSPHATASE 130 U/L (46-116); ASPARTATE AMINOTRANSFERASE 102 U/L (15-37); BILIRUBIN,TOTAL 0.5 mg/dL (0.2-1.0); CALCIUM, SERUM 8.4 mg/dL (8.5-10.1); CARBON DIOXIDE 22 mmol/L (21-32); CHLORIDE 92 mmol/L (98-107); GLUCOSE 321 mg/dL (74-106); PHOSPHORUS 7.4 mg/dL (2.5-4.9); POTASSIUM 6.1 mmol/L (3.5-5.1); SODIUM SERUM 132 mmol/L (136-145); TOTAL PROTEIN, SERUM 6.8 g/dL (6.4-8.2); UREA NITROGEN, BLOOD 63 mg/dL (7-18)
[2019-10-06 21:04] LABS: CREATININE 7.5 mg/dL (0.6-1.3)
[2019-10-06] MEDS ORDERED: NOREPINEPHRINE 4 MG/4 ML AMPUL IV ONE (21:07)
[2019-10-06] MEDS ORDERED: NOREPINEPHRINE 8 MG in IV NS 0.9% 242 ML IV PRN (21:30)
[2019-10-06] MEDS: NOREPINEPHRINE 8 MG in IV NS 0.9% 242 ML IV PRN (21:30)
--- NOTE | 2019-10-06 22:01 | NUR ---
CONDUIT CLEANER NOTE ABG RELAYED TO UNLEAVENED DOUGH MIXER [facility] SAFETY INSTRUCTOR WITH ORDERS TO INCREASE RATE FROM 16 TO 22 AND DRAW ABG IN 30 MINS. CRITICAL LAB VALUES TROPONIN 0.433, LA- 8.4, CREATININE 7.5 RELAYED TO UNLEAVENED DOUGH MIXER WITH ORDERS TO DRAW TROPONIN IN 8HR. DIALYSIS NURSE AT BEDSIDE. BP LOW AND NOTIFIED UNLEAVENED DOUGH MIXER WITH ORDERS TO START LEVO. CENTRAL LINE ORDER ALSO RECEIVED AND CONSENT RECEIVED FROM DAUGHTER ANA OVER TELEPHONE. WILL CONTINUE TO MONITOR.
[2019-10-06 23:27] LABS: ABG BASE EXCESS -10.7 mmol/L; ABG OXYGEN SATURATION 91.6 % (92.0-98.5); ABG PCO2 52.5 mmHg (35.0-45.0); ABG PH 7.156 (7.350-7.450); ABG PO2 77.8 mmHg (75.0-100.0); AaDO2 582.7 mmHg; COHb 0.2 % (0.5-1.5); MetHb 0.4 % (0.0-1.5); O2Hb 91.1 % (94.0-97.0); PEEP,BG 5 cm H2O; SITE, ABG Right Radial
--- NOTE | 2019-10-06 23:28 | NUR ---
ABG DONE. NOTIFIED RN WITH THE RESULT.
[2019-10-07] VITALS (10 sets, daily range): BP systolic 79–128; BP diastolic 19–46
--- NOTE | 2019-10-07 | NUR ---
SQUASH CENTRE MANAGER NOTE ABG RESULTS RELAYED TO DRIVER'S EDUCATION INSTRUCTOR WITH ORDERS TO INCREASE TIDAL VOLUME FROM 450 TO 500. RECHECK ABG IN HALF IN HOUR. ORDERS NOTED AND CARRIED OUT.
[2019-10-07 00:26] LABS: ABG BASE EXCESS -12.3 mmol/L; ABG OXYGEN SATURATION 97.3 % (92.0-98.5); ABG PCO2 43.3 mmHg (35.0-45.0); ABG PH 7.176 (7.350-7.450); ABG PO2 125.8 mmHg (75.0-100.0); AaDO2 543.9 mmHg; COHb 0.2 % (0.5-1.5); MetHb 0.4 % (0.0-1.5); O2Hb 96.7 % (94.0-97.0); PEEP,BG 5 cm H2O; SITE, ABG Right Radial
--- NOTE | 2019-10-07 00:27 | NUR ---
ABG DONE, RN NOTIFIED.
--- NOTE | 2019-10-07 00:47 | NUR ---
HORIZONTAL RESAW OPERATOR NOTE ABG RESULTS RELAYED TO TUBE OPERATOR NELSON GA WITH ORDERS TO GIVE 1 AMP SODIUM BICARB AND RECHECK ABG IN 1 HR. ORDERS NOTED AND CARRIED OUT. WILL MONITOR.
[2019-10-07] MEDS ORDERED: SODIUM BICARBONATE SYR 50 MEQ/50 ML DISP.SYRIN IV ONE ×2 (01:00→03:00)
[2019-10-07] MEDS ORDERED: NOREPINEPHRINE 4 MG/4 ML AMPUL IV ONE (01:25)
[2019-10-07] MEDS: NOREPINEPHRINE 8 MG in IV NS 0.9% 242 ML IV PRN (01:33)
[2019-10-07] MEDS ORDERED: INSULIN REGULAR, HUMAN 100 UNIT/ML 3 ML VIAL SQ PRN (02:00)
[2019-10-07] MEDS ORDERED: DEXTROSE 50%-WATER 50 ML DISP.SYRIN IV PRN (02:00)
[2019-10-07 02:29] LABS: ABG BASE EXCESS -12.7 mmol/L; ABG OXYGEN SATURATION 95.8 % (92.0-98.5); ABG PCO2 36.7 mmHg (35.0-45.0); ABG PH 7.209 (7.350-7.450); ABG PO2 98.7 mmHg (75.0-100.0); AaDO2 433.2 mmHg; COHb 0.2 % (0.5-1.5); MetHb 0.5 % (0.0-1.5); O2Hb 95.1 % (94.0-97.0); PEEP,BG 5 cm H2O; SITE, ABG Right Radial
[2019-10-07] MEDS ORDERED: PIPERACILLIN /TAZOBACTAM 2.25 G in IV D5W 50 ML IV ONE (02:30)
[2019-10-07] MEDS ORDERED: PIPERACILLIN /TAZOBACTAM 2.25 G VIAL IV ONE (02:38)
[2019-10-07] MEDS ORDERED: VANCOMYCIN 1.25 GM in IV D5W 250 ML IV ONE (03:00)
[2019-10-07 05:09] LABS: BASOPHILS # (AUTO) 0.1 /CMM (0.0-0.2); BASOPHILS % (AUTO) 0.5 % (0.0-2.0); EOSINOPHILS % (AUTO) 0.1 % (0.0-6.0); HEMATOCRIT 36 % (33-45); HEMOGLOBIN 11.2 g/dL (11.5-14.8); LYMPHOCYTES # (AUTO) 1.5 /CMM (0.8-4.8); MEAN CORPUSCULAR HGB CONC 31 g/dl (31.0-36.0); MEAN CORPUSCULAR VOLUME 98 fL (82-100); MONOCYTES # (AUTO) 0.7 /CMM (0.1-1.30); MONOCYTES % (AUTO) 3.3 % (2.0-12.0); NEUTROPHILS # (AUTO) 19.3 /CMM (1.8-8.9); NEUTROPHILS % (AUTO) 89.1 % (43.0-81.0); PLATELET COUNT (AUTO) 210 /CMM (150-450); RED BLOOD CELL COUNT(AUTO) 3.62 MIL/uL (4.0-5.2); WHITE BLOOD COUNT (AUTO) 21.7 K/uL (4.3-11.0)
[2019-10-07] MEDS: PROPOFOL 100 ML IV PRN (05:09)
[2019-10-07] MEDS ORDERED: EPINEPHRINE (1:10,000) SYRINGE 1 MG/10 ML DISP.SYRIN ONE ×2 (05:28)
[2019-10-07 05:29] LABS: B-TYPE NATRIURETIC PEPTIDE 22334 PG/ML (0-125); CALCIUM, SERUM 8.2 mg/dL (8.5-10.1); CARBON DIOXIDE 16 mmol/L (21-32); CHLORIDE 97 mmol/L (98-107); CREATININE 6.8 mg/dL (0.6-1.3); MAGNESIUM 2.8 mg/dL (1.8-2.4); SODIUM SERUM 140 mmol/L (136-145); UREA NITROGEN, BLOOD 58 mg/dL (7-18)
[2019-10-07 05:32] LABS: GLUCOSE 17 mg/dL (74-106); POTASSIUM 6.7 mmol/L (3.5-5.1)
--- NOTE | 2019-10-07 05:48 | NUR ---
@7781 CODE BLUE INITIATED. ER MD AT BEDSIDE RUNNING THE CODE. EXTRUDER OPERATOR HORIZONTAL AT BEDSIDE. RT AT BEDSIDE DOING CPR AND BAGGING. PT AT 0533. ER MD CALLED IT OFF. SEE NURSING NOTES.
[2019-10-07] MEDS ORDERED: PIPERACILLIN /TAZOBACTAM 3.375 G in IV D5W 50 ML IV SCH (06:00)
[2019-10-07] MEDS ORDERED: BLOOD SUGAR DIAGNOSTIC 1 EACH STRIP IN SCH (06:00)
[2019-10-07 06:24] LABS: CHOLESTEROL 95 mg/dL (<200); HDL CHOLESTEROL 65 mg/dL (40-60); THYROID STIMULATING HORMONE 4.905 uIU/mL (0.358-3.74); TRIGLYCERIDES 377 mg/dL (30-150)
[2019-10-07 06:37] LABS: LDL 34 mg/dL (0-99)
[2019-10-07] MEDS ORDERED: EPINEPHRINE (1:10,000) SYRINGE 1 MG/10 ML DISP.SYRIN IVP ONE (06:48)
--- NOTE | 2019-10-07 06:53 | NUR ---
ELECTRICAL PRODUCTS ENGINEER NOTE PT IN CARDIAC ARREST. ED DOCTOR CALLED THE TIME OF EXPIRATION AT 0533. NURSING GLOBAL COMPENSATION DIRECTOR AT BEDSIDE. 0538- ADMITTING NICKI NOTIFIED. 0540- NELSON CHAKRABORTY DRILL RIG OPERATOR HELPER NOTIFIED 0550- DAUGHTER ARNIE NOTIFIED AND ASKED TO CALL SISTER ANA. 0600- [facility] NOTIFIED WITH REFERENCE # [id number]. ASSEMBLY LINE MACHINE OPERATOR ALSO NOTIFIED AND RELEASED THE BODY. 0615- SPOKE WITH DAUGHTER ANA.
--- NOTE | 2019-10-07 08:30 | NUR ---
ICU/RN NOTES AFTER SPEAKING TO DAUGHTER MAURILIO, ACCORDING TO HER THEY WILL NOT BE ABLE TO COME TO THE HOSPITAL TO VISIT PATIENT. POSTMORTEM CARE WAS DONE. TAGS AND ID BAND IN PLACE. SECURITY ARRIVED AT THE UNIT. PATIENT WAS PLACED IN THE GURNEY AND WAS BROUGHT DOWN TO THE MORGUE. BELONGINGS WAS ALSO BROUGHT DOWN WITH THE PATIENT. DAUGHTER WAS ALSO INSTRUCTED TO CALL THE SUPERVISOR PAINT ROLLER COVERS IF SHE HAS ANY FURTHER QUESTIONS.
[2019-10-07] MEDS ORDERED: HEPARIN SODIUM, PORCINE 5000 UNITS/1 ML VIAL SQ SCH (09:00)
== END 2019-10-07 06:49 | disposition expired | DRG 208 ==
LOC: ER 08:17 → TELE 10:35 → ICU 19:40
PROVIDERS: ADMIT Student in an Organized Health Care Education/Training Program; ATTEND Registered Nurse
PROC: 5A1935Z Respiratory Ventilation, Less than 24 Consecutive Hours (ICD-10-PCS; principal; 2019-10-06)
PROC: 0BH17EZ Insertion of Endotracheal Airway into Trachea, Via Natural or Artificial Opening (ICD-10-PCS; 2019-10-06)
PROC: 5A1D70Z Performance of Urinary Filtration, Intermittent, Less than 6 Hours Per Day (ICD-10-PCS; 2019-10-06)
PROC: 5A12012 Performance of Cardiac Output, Single, Manual (ICD-10-PCS; 2019-10-06)
PROC: 05HY33Z Insertion of Infusion Device into Upper Vein, Percutaneous Approach (ICD-10-PCS; 2019-10-07)
DX: J96.01 Acute respiratory failure with hypoxia (principal); N18.6 End stage renal disease; J18.9 Pneumonia, unspecified organism; E87.1 Hypo-osmolality and hyponatremia; I13.2 Hypertensive heart and chronic kidney disease with heart failure and with stage 5 chronic kidney disease, or end stage renal disease; E87.2 Acidosis; I46.9 Cardiac arrest, cause unspecified; K21.9 Gastro-esophageal reflux disease without esophagitis; Z86.73 Personal history of transient ischemic attack (TIA), and cerebral infarction without residual deficits; Z99.2 Dependence on renal dialysis; I16.0 Hypertensive urgency; D72.829 Elevated white blood cell count, unspecified; E78.5 Hyperlipidemia, unspecified; E11.22 Type 2 diabetes mellitus with diabetic chronic kidney disease; H91.90 Unspecified hearing loss, unspecified ear; E03.9 Hypothyroidism, unspecified; Z79.01 Long term (current) use of anticoagulants; I50.9 Heart failure, unspecified; D63.1 Anemia in chronic kidney disease; M89.9 Disorder of bone, unspecified; I48.91 Unspecified atrial fibrillation; Z99.81 Dependence on supplemental oxygen
CPT/HCPCS: 31720; 36415; 36600; 71045-TC; 80048-TC; 80053-TC; 80061-TC; 80076-TC; 82140-TC; 82803-TC; 82962-TC; 83605-TC; 83735-TC; 83880; 84100-TC; 84443-TC; 84484-TC; 85025-TC; 85730-TC; 86706; 87040-TC; 87081-TC; 87340; 90935-TC; 92950-TC; 93307-TC; 94002-TC; 94760-TC; 97116-TC; 97530-TC; A6253; A6403; C1751; G0378; J0171; J1644; J1815; J1940; J2543; J3370; J3490; J7050; J7060